=== PATIENT | male | born 1990 | race Caucasian/White ===

== ENCOUNTER 2016-10-08 05:40 | Emergency (ER) | payer OTHER ==
[~2016-10-08 05:40] MED LIST: AMOXIL500 M1 PO; AURALGAN EAR DR14 ML OT; NO MEDICATIONS
== END 2016-10-08 05:48 | disposition home or self-care (01) ==
LOC: CFTX 05:40
DX: F42.4 Excoriation (skin-picking) disorder (principal); F19.10 Other psychoactive substance abuse, uncomplicated; F17.210 Nicotine dependence, cigarettes, uncomplicated; Z86.19 Personal history of other infectious and parasitic diseases; Z98.890 Other specified postprocedural states
CPT/HCPCS: 99283